=== PATIENT | female | born 1955 | race African-American/Black ===

== ENCOUNTER 2023-05-10 12:13 | Emergency (ER) | payer OTHER ==
[~2023-05-10] VITALS: Ht 152.4 cm; Wt 83.5 kg
[2023-05-10 12:15] VITALS: BP_SYST 152; PULSE 58; RESP 18; TEMP 97.8; O2SAT 98
--- NOTE | 2023-05-10 12:20 | NUR ---
Patient triaged and placed in waiting room. VSS and patient appears in no acute distress at this time. Accompanied by SPOUSE, awaiting available bed, and MD notified of need for MSE.
--- NOTE | 2023-05-10 14:10 | NUR ---
BROUGHT BACK TO BED IN HALLWAY AND AWAITING ROOM ASSIGNMENT
--- NOTE | 2023-05-10 14:45 | NUR ---
MD DR SIMMS AT BEDSIDE
--- NOTE | 2023-05-10 15:00 | NUR ---
PT CAME IN AMBULATORY TO ED WITH W/ C/O LOWER ABDOMINAL PAIN FOR 4XDAYS, VITALS ARE STABLE, PT IS A/OX4
[2023-05-10 15:25] LABS: HEMATOCRIT 41.6 % (36-48); MEAN CORPUSCULAR HEMOGLOBIN 27 pg (27-31); MEAN CORPUSCULAR HGB CONC 31 % (32-36); MEAN CORPUSCULAR VOLUME 85 fL (79.0-98.0); PLATELET COUNT (AUTO) 231 K/uL (130-430); RED BLOOD CELL COUNT(AUTO) 4.89 MIL/uL (4.2-6.2); RED CELL DISTRIBUTION WIDTH 14.6 % (9.0-15.0); WHITE BLOOD COUNT (AUTO) 7.1 K/uL (4.8-10.8)
[2023-05-10 15:39] LABS: ATYPICAL LYMPHOCYTES % 9 % (0-0); BAND % (MANUAL) 0 % (0-6); BASOPHILS % (MANUAL) 0 % (0-2); CREATININE 0.82 mg/dL (0.55-1.30); EOSINOPHILS % (MANUAL) 0 % (0-7); LYMPHOCYTES % (MANUAL) 60 % (20-46); MONOCYTES % (MANUAL) 6 % (0-11)
[2023-05-10 15:44] LABS: ALBUMIN 3.6 g/dL (3.4-4.8); TOTAL BILIRUBIN 0.4 mg/dL (0.0-1.0)
[2023-05-10 16:02] LABS: BILIRUBIN,URINE NEGATIVE (NEGATIVE); BLOOD, URINE NEGATIVE (NEGATIVE); CLARITY/URINE OTHER (CLEAR); COLOR,URINE YELLOW (YELLOW); GLUCOSE,URINE NEGATIVE (NEGATIVE); KETONES,URINE NEGATIVE (NEGATIVE); LEUKOCYTE ESTERASE ,URINE NEGATIVE (NEGATIVE); NITRITE, URINE NEGATIVE (NEGATIVE); PROTEIN URINE NEGATIVE (NEGATIVE)
[2023-05-10 18:15] VITALS: BP_SYST 177; PULSE 55; RESP 18; TEMP 97.8; O2SAT 96
--- NOTE | 2023-05-10 18:16 | NUR ---
Patient given written and verbal discharge instructions and verbalizes understanding. ER MD DR SIMMS discussed with patient the results and treatment provided. Patient in stable condition. ID arm band removed. IV catheter removed intact and dressing applied, no active bleeding. Patient educated on pain management and to follow up with PMD. Opportunity for questions provided and answered.
== END 2023-05-10 18:15 | disposition home or self-care (01) ==
LOC: SED 12:13
DX: G89.29 Other chronic pain (principal); R10.30 Lower abdominal pain, unspecified; I10 Essential (primary) hypertension; Z79.899 Other long term (current) drug therapy
CPT/HCPCS: 36415; 76376; 80053; 81003; 83690; 85007; 85027; 99284